=== PATIENT | female | born 1980 | race Caucasian/White ===

== ENCOUNTER 2016-09-02 16:48 | Emergency (ER) | payer OTHER ==
[~2016-09-02] VITALS: Ht 172.7 cm; Wt 73.1 kg
[2016-09-02] MEDS ORDERED: ERGOCALCIF50000 UNIT PO (17:49)
[2016-09-02] MEDS ORDERED: PRENATAL TABLE1 EAC3 PO (17:50)
[2016-09-02 17:54] LABS: ADD MIUA? YES; BILIRUBIN NEGATIVE; BLOOD NEGATIVE; COLOR YELLOW ((YELLOW)); GLUCOSE (STRIP) NEGATIVE; KETONES NEGATIVE; LEUKOCYTES NEGATIVE; NITRITE NEGATIVE; PROTEIN (STRIP) NEGATIVE
[2016-09-02 17:57] LABS: BACTERIA 1+ /HPF; EPITHELIAL CELLS 2+ /HPF; MUCUS NONE SEEN /LPF; RED BLOOD CELLS 0-5 /HPF (0-5); UCUL ADDED? NO; WHITE BLOOD CELLS 0-5 /HPF (0-5)
[2016-09-02 18:46] LABS: HEMATOCRIT 38.6 % (36.0-46.0); MCH 32.6 PG (29.0-34.0); MCHC 33.4 G/DL (30.0-36.0); MCV 97.5 FL (83-99); MEAN PLAT.VOLUME 10.3 uM^3 (9.5-12.4); PLATELET COUNT 280 K/uL (156-360); RBC DIS.WIDTH-CV 13.4 % (11.8-14.6); RBC DIS.WIDTH-SD 47.6 % (39-53); RED BLOOD COUNT 3.96 M/uL (3.80-5.20); WHITE BLOOD COUNT 2.8 K/uL (4.1-10.2)
[2016-09-02 18:59] LABS: CHLORIDE 106 mEq/L (99-109); POTASSIUM 4.3 mEq/L (3.7-5.4); SODIUM 141 mEq/L (136-147)
[2016-09-02 19:00] LABS: GLUCOSE 99 mg/dL (70-99)
[2016-09-02 19:02] LABS: ANION GAP 10 MEQ/L (2-14)
[2016-09-02 19:04] LABS: GFR ESTIMATE (CALCULATED) > 59 mL/min/
[2016-09-02 19:05] LABS: UREA NITROGEN (BUN) 9 mg/dL (9-23)
[2016-09-02 19:14] LABS: QUANTITATIVE HCG < 4.0 MIU/ML
[2016-09-02] MEDS ORDERED: KEFLEX500 MG PO (20:36)
[2016-09-02 20:43] VITALS: BP 122/74
== END 2016-09-02 20:44 | disposition home or self-care (01) ==
LOC: EME 16:48
PROVIDERS: Physician Assistant
DX: R30.0 Dysuria (principal); D72.819 Decreased white blood cell count, unspecified
CPT/HCPCS: 80048; 81003; 84702; 85027; 99281; 99284